=== PATIENT | male | born 1940 | race Hispanic/Latino ===

== ENCOUNTER 2021-03-07 08:30 | Inpatient (IN) | payer MEDICARE ==
[~2021-03-07] VITALS: Ht 177.8 cm; Wt 96.4 kg
[2021-03-07] MEDS ORDERED: SODIUM CHLORIDE 0.9% 1000ML 1,000 ML IV STA (08:40)
[2021-03-07 09:17] LABS: BASOPHILS % 0.3 % (0.0-1.0); EOSINOPHILS # (AUTO) 0.1 (0.0-0.4); EOSINOPHILS % 1.4 % (0.0-6.0); HEMATOCRIT 33.2 % (38.2-49.6); HEMOGLOBIN 10.3 g/dL (14.0-18.0); LYMPHOCYTES # (AUTO) 0.7 (1.0-3.2); LYMPHOCYTES % 10.7 % (18.0-39.1); MEAN CORPUSCULAR HEMOGLOBIN 29.2 pg (28-32); MEAN CORPUSCULAR VOLUME 94.1 fL (81-99); MONOCYTES # (AUTO) 0.3 (0.2-0.8); MONOCYTES % 5.4 % (4.4-11.3); NEUTROPHILS # (AUTO) 5.2 (2.1-6.9); NEUTROPHILS % 81.4 % (38.7-80.0); PLATELET COUNT 177 x10e3/uL (140-360); RED BLOOD COUNT 3.53 x10e6/uL (4.3-5.7); RED CELL DISTRIBUTION WIDTH 14.5 % (11.7-14.4)
[2021-03-07 09:28] LABS: INR 1.05; PROTHROMBIN TIME 14.6 seconds (11.9-14.5)
[2021-03-07 09:30] LABS: CLARITY,URINE CLOUDY (CLEAR); COLOR,URINE YELLOW (YELLOW); KETONES,URINE TRACE (NEGATIVE); LEUKOCYTE ESTERASE ,URINE SMALL (NEGATIVE); NITRITE,URINE POSITIVE (NEGATIVE); PROTEIN,URINE DIPSTICK 1+ (NEGATIVE); URINE UROBILINOGEN 0.2 mg/dL (0.2 - 1)
[2021-03-07 09:30] LABS: PARTIAL THROMBOPLASTIN TIME 41.1 seconds (23.8-35.5)
[2021-03-07] MEDS ORDERED: SODIUM CHLORIDE 0.9% 50ML 0 ML ONE (09:30)
[2021-03-07] MEDS ORDERED: IOPAMIDOL 370 MG/ML 200 ML INFUS..BTL INJ ONE (09:30)
[2021-03-07] MEDS: SODIUM CHLORIDE 0.9% IV SCH ×2 (09:31→15:42)
[2021-03-07 09:37] LABS: B-TYPE NATRIURETIC PEPTIDE2 81.1 pg/mL (0-100)
[2021-03-07 09:38] LABS: BACTERIA,URINE MANY /HPF; EPITHELIAL CELLS,URINE FEW /LPF; RBC,URINE >50 /HPF (0-5); WBC,URINE (MAN) >50 /HPF (0-5)
[2021-03-07 09:39] LABS: ALBUMIN 2.4 g/dL (3.5-5.0); ALBUMIN/GLOBULIN RATIO 0.5 (0.8-2.0); CALCIUM 8.2 mg/dL (8.4-10.2); CREATININE, SERUM 2.26 mg/dL (0.72-1.25); MAGNESIUM 1.2 MG/DL (1.3-2.1)
[2021-03-07] MEDS ORDERED: SODIUM CHLORIDE 0.9% 1000ML 1,000 ML ONE (09:49)
[2021-03-07 09:59] LABS: CREATINE KINASE MB 1.8 ng/mL (0-5.0); THYROID STIMULATING HORMONE 3.097 uIU/mL (0.350-4.940)
[2021-03-07] MEDS ORDERED: PIPERACILLIN/TAZOBACTAM 2.25 GM in SODIUM CHLORIDE 0.9% 50ML 50 ML IV STA (10:03)
[2021-03-07] MEDS ORDERED: PIPERACILLIN/TAZO 4.5 GM 100 ML IV ONE (10:16)
[2021-03-07] MEDS ORDERED: GLUCAGON FOR INJ 1 MG VIAL IV ONE (10:30)
[2021-03-07] MEDS ORDERED: MAGNESIUM SULF 1GRAM/DEXTROSE 100 ML IV ONE ×2 (10:30→16:15)
[2021-03-07] MEDS ORDERED: NOREPINEPHRINE 8 MG/D5W 250 ML 250 ML ONE (10:44)
[2021-03-07] MEDS ORDERED: Vancomycin IV 1 GM in SODIUM CHLORIDE 0.9% 250ML 250 ML IV ONE (12:45)
[2021-03-07] MEDS: SODIUM CHLORIDE 0.9% 1000ML 1,000 ML IV SCH ×2 (12:54→15:42)
[2021-03-07] MEDS ORDERED: MEROPENEM 500 MG in SODIUM CHLORIDE 0.9% 50ML 50 ML IV STA (13:09)
[2021-03-07 13:17] LABS: ABG PCO2 34 mmHg (35-45); ABG PH 7.29 (7.35-7.45); ABG PO2 207 mmHg (80-105)
[2021-03-07 13:18] LABS: ABG HCO3 17 mmol/L (22-26); ABG TCO2 18
[2021-03-07] MEDS ORDERED: EPINEPHRINE HCL SYRINGE ONE ×2 (13:34→14:58)
[2021-03-07] MEDS ORDERED: SODIUM CHLORIDE FLUSH 10 ML SYR ONE (13:34)
[2021-03-07] MEDS ORDERED: SODIUM CHLORIDE 0.9% 500ML 500 ML ONE (15:11)
[2021-03-07] MEDS ORDERED: SODIUM CHLORIDE 0.9% 1000ML 1,000 ML IV ONE (15:15)
[2021-03-07] MEDS: NOREPINEPHRINE 8 MG/D5W 250 ML 250 ML IV SCH ×3 (15:40→22:47)
[2021-03-07] MEDS: VASOPRESSIN 60 UNIT in DEXTROSE 5% 50ML 57 ML IV PRN ×3 (15:42→23:03)
[2021-03-07 16:04] VITALS: BP 54/35
[2021-03-07] MEDS ORDERED: CETIRIZINE HCL10 MG (16:07)
[2021-03-07] MEDS ORDERED: HYDRALAZINE HCL50 MG PO (16:07)
[2021-03-07] MEDS ORDERED: LISINOPRIL10 MG PO (16:07)
[2021-03-07] MEDS ORDERED: LYRICA100 MG PO (16:07)
[2021-03-07] MEDS ORDERED: LEVOTHYROXINE50 MCG PO (16:07)
[2021-03-07] MEDS ORDERED: KLOR-CON 88 MEQ (16:07)
[2021-03-07] MEDS ORDERED: FOLIC ACID-VIT1 EACH PO (16:07)
[2021-03-07] MEDS ORDERED: FERROUS SULFAT325 MG PO (16:07)
[2021-03-07] MEDS ORDERED: LOSARTAN POTAS100 MG PO (16:07)
[2021-03-07] MEDS ORDERED: ATORVASTATIN CA40 MG PO (16:07)
[2021-03-07] MEDS ORDERED: BUMETANIDE1 MG PO (16:07)
[2021-03-07] MEDS ORDERED: COREG6.25 MG PO (16:07)
[2021-03-07] MEDS ORDERED: FLONASE ALLERG9.9 ML INH (16:07)
[2021-03-07] MEDS ORDERED: COLACE100 MG PO (16:07)
[2021-03-07] MEDS ORDERED: DEPAKOTE ER250 MG PO (16:07)
[2021-03-07] MEDS ORDERED: MELATONIN3 MG PO (16:07)
[2021-03-07] MEDS ORDERED: ACIDOPHILUS1 EAC1 PO (16:07)
[2021-03-07] MEDS ORDERED: IPRAT-ALBUT 0.5-3 ML (16:07)
[2021-03-07] MEDS ORDERED: DOXYCYCLINE HY100 MG PO (16:07)
[2021-03-07] MEDS ORDERED: LASIX40 MG PO (16:07)
[2021-03-07] MEDS ORDERED: ASPIRIN81 MG PO (16:07)
[2021-03-07] MEDS ORDERED: METFORMIN HCL500 MG PO (16:08)
[2021-03-07] MEDS ORDERED: ULTRAM50 MG PO (16:08)
[2021-03-07] MEDS ORDERED: RISPERIDONE1 MG PO (16:08)
[2021-03-07] MEDS ORDERED: PROCARDIA XL30 MG (16:08)
[2021-03-07] MEDS ORDERED: VITAMIN C1000 MG PO (16:08)
[2021-03-07] MEDS ORDERED: LOPRESSOR25 MG PO (16:08)
[2021-03-07] MEDS ORDERED: AMIODARONE HCL100 MG PO (16:08)
[2021-03-07] MEDS ORDERED: OMEPRAZOLE40 MG PO (16:08)
[2021-03-07] MEDS ORDERED: XARELTO20 MG PO (16:08)
[2021-03-07] MEDS ORDERED: PROCTOSOL-HC28.35 GM PR (16:08)
[2021-03-07] MEDS ORDERED: CALCIUM GLUCONATE 10% INJ 13.95 MEQ in SODIUM CHLORIDE 0.9% 100 ML 100 ML IV ONE (16:15)
[2021-03-07] MEDS: DEXMEDETOMIDINE 400MCG/NS100ML 100 ML IV PRN (17:00)
[2021-03-07] MEDS ORDERED: LORAZEPAM INJ 2 MG/ML VIAL IV PRN (17:15)
[2021-03-07] MEDS: ENOXAPARIN 30 MG/0.3 ML SYR SC SCH (19:15)
[2021-03-07] MEDS: HYDROCORTISONE SOD SUCCINATE 100 MG VIAL IV SCH ×2 (19:15→23:11)
[2021-03-07 20:36] VITALS: BP 126/104
[2021-03-07 20:55] LABS: CREATINE KINASE MB 3.2 ng/mL (0-5.0)
[2021-03-07 21:30] VITALS: BP 121/108
[2021-03-07 22:00] VITALS: BP 109/97
[2021-03-07] MEDS: VALPROATE 250MG/5ML ORAL LIQ 5ml GT SCH (22:01)
[2021-03-07 23:00] VITALS: BP 111/90
[2021-03-08] VITALS (14 sets, daily range): BP systolic 79–121; BP diastolic 61–99
[2021-03-08] MEDS: MEROPENEM 500 MG in SODIUM CHLORIDE 0.9% 50ML 50 ML IV SCH ×2 (00:48→13:21)
[2021-03-08] MEDS ORDERED: ACETAMINOPHEN 325 MG TAB PO PRN (01:00)
[2021-03-08] MEDS: VASOPRESSIN 60 UNIT in DEXTROSE 5% 50ML 57 ML IV PRN ×2 (01:03→02:05)
[2021-03-08] MEDS: DEXMEDETOMIDINE 400MCG/NS100ML 100 ML IV PRN ×2 (01:25→11:34)
[2021-03-08] MEDS: NOREPINEPHRINE 8 MG/D5W 250 ML 250 ML IV SCH ×3 (04:02→22:55)
[2021-03-08] MEDS: LEVOTHYROXINE SODIUM 50 MCG TAB PO SCH (05:10)
[2021-03-08] MEDS: HYDROCORTISONE SOD SUCCINATE 100 MG VIAL IV SCH ×3 (05:10→17:48)
[2021-03-08 06:04] LABS: CREATINE KINASE MB 2.1 ng/mL (0-5.0)
[2021-03-08 06:17] LABS: THYROID STIMULATING HORMONE 1.286 uIU/mL (0.350-4.940)
[2021-03-08 06:42] LABS: BASOPHILS # (AUTO) 0.1 (0.0-0.1); BASOPHILS % 0.3 % (0.0-1.0); EOSINOPHILS % 0.1 % (0.0-6.0); HEMOGLOBIN 13.5 g/dL (14.0-18.0); LYMPHOCYTES # (AUTO) 0.6 (1.0-3.2); LYMPHOCYTES % 3.1 % (18.0-39.1); MEAN CORPUSCULAR HGB CONC 31.4 g/dL (31-35); MEAN CORPUSCULAR VOLUME 92.3 fL (81-99); MONOCYTES # (AUTO) 0.9 (0.2-0.8); MONOCYTES % 4.5 % (4.4-11.3); NEUTROPHILS % 90.5 % (38.7-80.0); PLATELET COUNT 224 x10e3/uL (140-360); RED BLOOD COUNT 4.66 x10e6/uL (4.3-5.7); RED CELL DISTRIBUTION WIDTH 14.2 % (11.7-14.4)
[2021-03-08] MEDS: ASCORBIC ACID 500 MG TAB PO SCH (08:12)
[2021-03-08] MEDS: AMIODARONE HCL 200 MG TAB PO SCH (08:12)
[2021-03-08] MEDS: LACTOBACILLUS ACIDOPHILUS CAPSULE PO SCH (08:12)
[2021-03-08] MEDS: ASPIRIN 81 MG CHEW TAB PO SCH (08:12)
[2021-03-08 08:31] LABS: ABG HCO3 14 mmol/L (22-26); ABG PCO2 29 mmHg (35-45); ABG PH 7.29 (7.35-7.45); ABG PO2 83 mmHg (80-105); ABG TCO2 15
[2021-03-08 08:33] LABS: ABG HCO3 14 mmol/L (22-26); ABG PCO2 29 mmHg (35-45); ABG PH 7.29 (7.35-7.45); ABG PO2 83 mmHg (80-105); ABG TCO2 15
[2021-03-08] MEDS ORDERED: PANTOPRAZOLE SOD 40 MG TABEC PO SCH (09:00)
[2021-03-08 09:03] LABS: ALBUMIN 1.6 g/dL (3.5-5.0); ALBUMIN/GLOBULIN RATIO 0.4 (0.8-2.0); ANION GAP 17.7 mmol/L (8-16); CALCIUM 7.2 mg/dL (8.4-10.2); CREATININE, SERUM 2.61 mg/dL (0.72-1.25); POTASSIUM 4.7 mmol/L (3.5-5.1)
[2021-03-08] MEDS: VALPROATE 250MG/5ML ORAL LIQ 5ml GT SCH ×2 (09:13→21:02)
[2021-03-08] MEDS ORDERED: INSULIN REGULAR, HUMAN 3ML VL 100 UNIT in SODIUM CHLORIDE 0.9% 99 ML IV SCH ×2 (09:45)
[2021-03-08] MEDS ORDERED: DEXTROSE 50% SYRINGE 50 ML IV PRN (09:45)
[2021-03-08] MEDS ORDERED: SUCCINYLCHOLINE CHLORIDE 20 MG/ML 10ML VIAL ONE (13:13)
[2021-03-08] MEDS ORDERED: ETOMIDATE 2 MG/ML 10 ML INJ IV ONE (13:13)
[2021-03-08] MEDS ORDERED: CALCIUM GLUCONATE 10% INJ 4.65 MEQ in SODIUM CHLORIDE 0.9% 50ML 50 ML IV ONE (14:15)
[2021-03-08] MEDS: SODIUM BICARBONATE 8.4% SYRING 50 ML in SODIUM CHLORIDE 0.45% 1,000 ML IV SCH (14:30)
[2021-03-08] MEDS ORDERED: MAGNESIUM SULFATE 2GM/50ML 50 ML IV ONE (15:30)
[2021-03-08] MEDS ORDERED: MAGNESIUM SULF 1GRAM/DEXTROSE 100 ML IV ONE (15:30)
[2021-03-08] MEDS ORDERED: SODIUM BICARBONATE 8.4% SYRING 50 ML ONE (15:57)
[2021-03-08] MEDS ORDERED: CARVEDILOL 12.5 MG TAB PO SCH (17:00)
[2021-03-08] MEDS: ENOXAPARIN 30 MG/0.3 ML SYR SC SCH (17:48)
[2021-03-08] MEDS: PREGABALIN 50 MG CAP PO SCH ×2 (17:48→21:03)
[2021-03-08] MEDS ORDERED: DIVALPROEX SODIUM 250 MG TAB...DR PO SCH (21:00)
[2021-03-09] VITALS (24 sets, daily range): BP systolic 87–137; BP diastolic 44–85
[2021-03-09] MEDS: HYDROCORTISONE SOD SUCCINATE 100 MG VIAL IV SCH ×5 (00:30→23:13)
[2021-03-09] MEDS: MEROPENEM 500 MG in SODIUM CHLORIDE 0.9% 50ML 50 ML IV SCH ×2 (01:30→15:16)
[2021-03-09] MEDS ORDERED: SODIUM CHLORIDE 0.9% 50ML 50 ML ONE (01:46)
[2021-03-09] MEDS: SODIUM BICARBONATE 8.4% SYRING 50 ML in SODIUM CHLORIDE 0.45% 1,000 ML IV SCH ×3 (03:05→22:50)
[2021-03-09] MEDS: NOREPINEPHRINE 8 MG/D5W 250 ML 250 ML IV SCH (05:00)
[2021-03-09] MEDS: LEVOTHYROXINE SODIUM 50 MCG TAB PO SCH (06:06)
[2021-03-09] MEDS: VASOPRESSIN 60 UNIT in DEXTROSE 5% 50ML 57 ML IV PRN (06:07)
[2021-03-09 06:48] LABS: ANION GAP 14.4 mmol/L (8-16); CREATININE, SERUM 1.81 mg/dL (0.72-1.25); POTASSIUM 3.4 mmol/L (3.5-5.1)
[2021-03-09 06:50] LABS: CALCIUM 6.9 mg/dL (8.4-10.2)
[2021-03-09 09:27] LABS: BASOPHILS % 0.1 % (0.0-1.0); EOSINOPHILS % 0.1 % (0.0-6.0); HEMATOCRIT 31.1 % (38.2-49.6); HEMOGLOBIN 10.6 g/dL (14.0-18.0); LYMPHOCYTES # (AUTO) 0.6 (1.0-3.2); LYMPHOCYTES % 4.4 % (18.0-39.1); MEAN CORPUSCULAR HEMOGLOBIN 29.1 pg (28-32); MEAN CORPUSCULAR HGB CONC 34.1 g/dL (31-35); MEAN CORPUSCULAR VOLUME 85.4 fL (81-99); MONOCYTES # (AUTO) 0.6 (0.2-0.8); MONOCYTES % 4.1 % (4.4-11.3); NEUTROPHILS # (AUTO) 12.4 (2.1-6.9); PLATELET COUNT 158 x10e3/uL (140-360); RED BLOOD COUNT 3.64 x10e6/uL (4.3-5.7); RED CELL DISTRIBUTION WIDTH 13.8 % (11.7-14.4)
[2021-03-09 09:36] LABS: ABG PCO2 27 mmHg (35-45); ABG PH 7.41 (7.35-7.45); ABG PO2 103 mmHg (80-105)
[2021-03-09 09:37] LABS: ABG HCO3 17 mmol/L (22-26); ABG TCO2 18
[2021-03-09] MEDS: PREGABALIN 50 MG CAP PO SCH ×3 (10:21→21:14)
[2021-03-09] MEDS: VALPROATE 250MG/5ML ORAL LIQ 5ml GT SCH ×2 (10:21→21:14)
[2021-03-09] MEDS: LACTOBACILLUS ACIDOPHILUS CAPSULE PO SCH (10:21)
[2021-03-09] MEDS: AMIODARONE HCL 200 MG TAB PO SCH (10:21)
[2021-03-09] MEDS: FERROUS SULFATE 325 MG TAB PO SCH (10:21)
[2021-03-09] MEDS: ASCORBIC ACID 500 MG TAB PO SCH (10:21)
[2021-03-09] MEDS: ASPIRIN 81 MG CHEW TAB PO SCH (10:21)
[2021-03-09] MEDS ORDERED: POTASSIUM CHLORIDE 20MEQ/100ML 100 ML IV ONE (15:15)
[2021-03-09] MEDS: ENOXAPARIN 30 MG/0.3 ML SYR SC SCH (17:29)
[2021-03-09] MEDS: DEXMEDETOMIDINE 400MCG/NS100ML 100 ML IV PRN (20:47)
[2021-03-09] MEDS: CALCIUM CARBONATE 500 MG CHEWABLE TABS PO SCH (21:15)
[2021-03-10] VITALS (23 sets, daily range): BP systolic 45–120; BP diastolic 23–59
[2021-03-10] MEDS: MEROPENEM 500 MG in SODIUM CHLORIDE 0.9% 50ML 50 ML IV SCH ×3 (01:10→21:47)
[2021-03-10] MEDS: DEXMEDETOMIDINE 400MCG/NS100ML 100 ML IV PRN (04:21)
[2021-03-10] MEDS: LEVOTHYROXINE SODIUM 50 MCG TAB PO SCH (05:28)
[2021-03-10] MEDS: HYDROCORTISONE SOD SUCCINATE 100 MG VIAL IV SCH ×2 (05:28→18:50)
[2021-03-10 05:38] LABS: BASOPHILS % 0.1 % (0.0-1.0); HEMATOCRIT 28.6 % (38.2-49.6); HEMOGLOBIN 10.1 g/dL (14.0-18.0); LYMPHOCYTES # (AUTO) 0.4 (1.0-3.2); LYMPHOCYTES % 3.5 % (18.0-39.1); MEAN CORPUSCULAR HEMOGLOBIN 29.4 pg (28-32); MEAN CORPUSCULAR HGB CONC 35.3 g/dL (31-35); MEAN CORPUSCULAR VOLUME 83.1 fL (81-99); MONOCYTES # (AUTO) 0.7 (0.2-0.8); MONOCYTES % 5.6 % (4.4-11.3); NEUTROPHILS # (AUTO) 10.5 (2.1-6.9); NEUTROPHILS % 89.3 % (38.7-80.0); PLATELET COUNT 143 x10e3/uL (140-360); RED BLOOD COUNT 3.44 x10e6/uL (4.3-5.7); RED CELL DISTRIBUTION WIDTH 13.9 % (11.7-14.4)
[2021-03-10 06:02] LABS: ALBUMIN 1.6 g/dL (3.5-5.0); ALBUMIN/GLOBULIN RATIO 0.5 (0.8-2.0); ANION GAP 14.9 mmol/L (8-16); CREATININE, SERUM 1.27 mg/dL (0.72-1.25)
[2021-03-10 06:07] LABS: POTASSIUM 2.9 mmol/L (3.5-5.1)
[2021-03-10] MEDS ORDERED: POTASSIUM CHLORIDE 20MEQ/100ML 200 ML IV ONE (08:00)
[2021-03-10 08:26] LABS: ABG HCO3 23 mmol/L (22-26); ABG PCO2 29 mmHg (35-45); ABG PO2 107 mmHg (80-105); ABG TCO2 24
[2021-03-10] MEDS: VALPROATE 250MG/5ML ORAL LIQ 5ml GT SCH ×2 (09:17→21:00)
[2021-03-10] MEDS: ASCORBIC ACID 500 MG TAB PO SCH (09:17)
[2021-03-10] MEDS: AMIODARONE HCL 200 MG TAB PO SCH (09:17)
[2021-03-10] MEDS: FERROUS SULFATE 325 MG TAB PO SCH (09:17)
[2021-03-10] MEDS: ASPIRIN 81 MG CHEW TAB PO SCH (09:17)
[2021-03-10] MEDS: PREGABALIN 50 MG CAP PO SCH ×3 (09:17→21:00)
[2021-03-10] MEDS: LACTOBACILLUS ACIDOPHILUS CAPSULE PO SCH (09:17)
[2021-03-10] MEDS: CALCIUM CARBONATE 500 MG CHEWABLE TABS PO SCH ×3 (09:17→21:00)
[2021-03-10 12:11] LABS: ABG HCO3 20 mmol/L (22-26); ABG PCO2 32 mmHg (35-45); ABG PH 7.42 (7.35-7.45); ABG PO2 125 mmHg (80-105); ABG TCO2 21
[2021-03-10] MEDS: ENOXAPARIN 30 MG/0.3 ML SYR SC SCH (18:50)
[2021-03-11] VITALS (10 sets, daily range): BP systolic 31–44; BP diastolic 14–23
[2021-03-11] MEDS: LEVOTHYROXINE SODIUM 50 MCG TAB PO SCH (05:45)
[2021-03-11] MEDS: HYDROCORTISONE SOD SUCCINATE 100 MG VIAL IV SCH ×2 (05:45)
[2021-03-11] MEDS: MEROPENEM 500 MG in SODIUM CHLORIDE 0.9% 50ML 50 ML IV SCH (05:45)
[2021-03-11] MEDS: FERROUS SULFATE 325 MG TAB PO SCH (07:59)
[2021-03-11] MEDS: PREGABALIN 50 MG CAP PO SCH (07:59)
[2021-03-11] MEDS: AMIODARONE HCL 200 MG TAB PO SCH (07:59)
[2021-03-11] MEDS: VALPROATE 250MG/5ML ORAL LIQ 5ml GT SCH (07:59)
[2021-03-11] MEDS: LACTOBACILLUS ACIDOPHILUS CAPSULE PO SCH (07:59)
[2021-03-11] MEDS: ASPIRIN 81 MG CHEW TAB PO SCH (07:59)
[2021-03-11] MEDS: CALCIUM CARBONATE 500 MG CHEWABLE TABS PO SCH (08:00)
[2021-03-11] MEDS: ASCORBIC ACID 500 MG TAB PO SCH (08:00)
== END 2021-03-11 16:05 | disposition expired | DRG 871 ==
LOC: ER 08:42 → ERHOLD 13:07 → ICU 15:09
PROVIDERS: ADMIT Internal Medicine; ATTEND Internal Medicine
PROC: 02HV33Z Insertion of Infusion Device into Superior Vena Cava, Percutaneous Approach (ICD-10-PCS; principal; 2021-03-07)
PROC: 5A1945Z Respiratory Ventilation, 24-96 Consecutive Hours (ICD-10-PCS; 2021-03-07)
PROC: 0BH17EZ Insertion of Endotracheal Airway into Trachea, Via Natural or Artificial Opening (ICD-10-PCS; 2021-03-07)
PROC: 5A12012 Performance of Cardiac Output, Single, Manual (ICD-10-PCS; 2021-03-07)
PROC: 3E043XZ Introduction of Vasopressor into Central Vein, Percutaneous Approach (ICD-10-PCS; 2021-03-07)
PROC: 03HB33Z Insertion of Infusion Device into Right Radial Artery, Percutaneous Approach (ICD-10-PCS; 2021-03-08)
PROC: 03HC33Z Insertion of Infusion Device into Left Radial Artery, Percutaneous Approach (ICD-10-PCS; 2021-03-08)
DX: A41.59 Other Gram-negative sepsis (principal); R65.21 Severe sepsis with septic shock; J96.01 Acute respiratory failure with hypoxia; N39.0 Urinary tract infection, site not specified; M48.54XA Collapsed vertebra, not elsewhere classified, thoracic region, initial encounter for fracture; N17.9 Acute kidney failure, unspecified; E87.1 Hypo-osmolality and hyponatremia; N10 Acute pyelonephritis; Z16.12 Extended spectrum beta lactamase (ESBL) resistance; E44.0 Moderate protein-calorie malnutrition; I46.9 Cardiac arrest, cause unspecified; I11.0 Hypertensive heart disease with heart failure; I50.9 Heart failure, unspecified; E78.5 Hyperlipidemia, unspecified; E11.65 Type 2 diabetes mellitus with hyperglycemia; I69.398 Other sequelae of cerebral infarction; G40.909 Epilepsy, unspecified, not intractable, without status epilepticus; F25.9 Schizoaffective disorder, unspecified; I48.91 Unspecified atrial fibrillation; F31.9 Bipolar disorder, unspecified; Z79.01 Long term (current) use of anticoagulants; Z88.5 Allergy status to narcotic agent; Z88.8 Allergy status to other drugs, medicaments and biological substances; B96.4 Proteus (mirabilis) (morganii) as the cause of diseases classified elsewhere; Z66 Do not resuscitate; Z79.82 Long term (current) use of aspirin; Z79.84 Long term (current) use of oral hypoglycemic drugs; Z20.822 Contact with and (suspected) exposure to COVID-19; Z68.30 Body mass index [BMI] 30.0-30.9, adult
CPT/HCPCS: 36415; 36600; 51700; 70450; 71045; 72125; 74018; 74176; 80048; 80053; 80164; 81001; 82140; 82533; 82550; 82553; 82805; 82948; 83605; 83735; 83880; 84443; 84484; 85025; 85610; 85730; 87040; 87086; 87186; 93005; 93306; 94002; 94003; 99284; J0171; J0330; J0610; J1610; J1650; J1720; J1817; J2060; J2185; J2543; J3370; J3475; J3480; J7030; J7040; J7050; Q9967; U0002